=== PATIENT | male | born 1955 | race Caucasian/White ===

== ENCOUNTER 2017-08-20 14:39 | Emergency (ER) | payer OTHER ==
[~2017-08-20] VITALS: Ht 182.9 cm; Wt 77.1 kg
[2017-08-20 14:53] VITALS: Ht 182.9 cm; Wt 77.1 kg
[2017-08-20 15:59] VITALS: BP 119/79
== END 2017-08-20 15:59 | disposition home or self-care (01) ==
LOC: ED 14:39
DX: R40.4 Transient alteration of awareness (principal)